=== PATIENT | male | born 1960 | race Caucasian/White ===

== ENCOUNTER 2017-05-21 17:53 | Emergency (ER) | payer OTHER ==
[~2017-05-21] VITALS: Ht 185.4 cm; Wt 91.6 kg
--- NOTE | ~2017-05-21 | EKG ---
[place] [address] [facility] [place] [address] ELECTROCARDIOGRAM REPORT Name: TIFFANY OLSEN Room #: [facility] Clay#: [id number] Admission: 05/21/17 Attend Phys: Discharge: 05/21/17 Date of : 58 Report #: [id number] THIS REPORT FOR: //name// [facility] ED Test Date: 2017-05-21 Test Time: 18:02:50 Pat Name: TIFFANY OLSEN Department: Room: Gender: M Refuse Laborer: [id number] : [id number] Requested By: Roderick Grace Order Number: [id number] MD: Yaya Trimble Measurements Intervals [place] Rate: 72 P: 59 SD: 148 QRS: 29 QRSD: 78 T: 112 QT: 363 QTc: 398 Interpretive Statements Sinus rhythm Nonspecific ST and T wave abnormality No previous ECG available for comparison Electronically Signed On 05-22-2017 8:44:57 CDT by Yaya Trimble [email or web address] <ELECTRONICALLY SIGNED> By: Yaya Trimble MD, [facility] 05/22/17 0844 1802 01 Yaya Trimlbe MD, FACC /EPI
[2017-05-21 18:05] LABS: ABSOLUTE NEUTROPHILS 6.2 thou/uL (1.4-8.2); BASOPHILS 0.9 % (0.0-2.0); EOSINOPHILS 0.4 % (0.0-3.0); HEMATOCRIT 43.9 % (42.0-52.0); HEMOGLOBIN 14.8 gm/dL (14.0-18.0); LYMPHOCYTES 22.1 % (24.0-44.0); MCH 27.7 pg (26.0-34.0); MCHC 33.7 g/dL (28.0-37.0); MCV 82.2 fL (80.0-100.0); MONOCYTES 6.3 % (1.0-8.0); PLATELET COUNT 249 thou/uL (150-400); POLYS 70.3 % (36.0-66.0); RBC 5.34 mil/uL (4.50-6.00); RDW 13.8 % (10.5-14.5); WBC 8.9 thou/uL (4.0-11.0)
[2017-05-21 18:06] LABS: MANUAL DIFF NO
[2017-05-21 18:14] LABS: ANION GAP 10 mmol/L (7-16); BUN 17 mg/dL (7-18); CALCIUM 9.2 mg/dL (8.5-10.1); CHLORIDE 107 mmol/L (98-107); CO2 25 mmol/L (21-32); CREATININE 1.2 mg/dL (0.7-1.3); GLUCOSE 141 mg/dL (74-106); POTASSIUM 3.3 mmol/L (3.5-5.1); SODIUM 142 mmol/L (136-145)
[2017-05-21] MEDS ORDERED: LISINOPRIL20 MG PO (18:17)
[2017-05-21] MEDS ORDERED: SIMVASTATIN40 MG PO (18:18)
[2017-05-21 18:27] LABS: ALBUMIN 4.1 g/dL (3.4-5.0); ALKALINE PHOSPHATASE 69 U/L (46-116); SGOT 74 U/L (15-37); SGPT 29 U/L (30-65); TOTAL BILIRUBIN 0.8 mg/dL (<0.1-1.0); TOTAL PROTEIN 7.9 g/dL (6.4-8.2); TROPONIN-I < 0.04 ng/mL (<0.04-0.07)
[2017-05-21 19:54] LABS: URINE BILIRUBIN NEGATIVE (Negative); URINE BLOOD TRACE (Negative); URINE COLOR YELLOW; URINE GLUCOSE-RANDOM* NEGATIVE (Negative); URINE KETONES TRACE (Negative); URINE NITRITE NEGATIVE (Negative); URINE PROTEIN (DIPSTICK) 1+ (Negative); URINE SPECIFIC GRAVITY 1.015 (1.003-1.035)
[2017-05-21 20:03] LABS: SQUAMOUS 0-3 Few /LPF (0-3)
[2017-05-21 20:04] LABS: BACTERIA 1-9 Few /HPF (None Seen); CRYSTALS None Seen /LPF (None Seen); URINE RBC 0-2 Rare /HPF (0-2)
[2017-05-21 20:08] LABS: HYALINE CASTS 0-3 Few /LPF (None Seen)
[2017-05-21 21:37] VITALS: BP 164/72
== END 2017-05-21 21:38 | disposition home or self-care (01) ==
LOC: ER 17:53
PROVIDERS: Physician Assistant
DX: S01.81XA Laceration without foreign body of other part of head, initial encounter (principal); M62.82 Rhabdomyolysis; T67.5XXA Heat exhaustion, unspecified, initial encounter; Z88.2 Allergy status to sulfonamides; F10.99 Alcohol use, unspecified with unspecified alcohol-induced disorder; W18.30XA Fall on same level, unspecified, initial encounter; Y93.89 Activity, other specified; Y92.511 Restaurant or cafe as the place of occurrence of the external cause; Y99.8 Other external cause status

== ENCOUNTER 2017-05-26 12:53 | Emergency (ER) | payer OTHER ==
[~2017-05-26] VITALS: Ht 185.4 cm; Wt 90.7 kg
[~2017-05-26 12:53] MED LIST: LISINOPRIL20 MG PO; SIMVASTATIN40 MG PO
[2017-05-26 12:54] VITALS: BP 157/67
== END 2017-05-26 13:46 | disposition home or self-care (01) ==
LOC: ER 12:53
DX: S01.81XD Laceration without foreign body of other part of head, subsequent encounter (principal); X58.XXXD Exposure to other specified factors, subsequent encounter; Y92.89 Other specified places as the place of occurrence of the external cause; Y99.8 Other external cause status; I10 Essential (primary) hypertension; E78.00 Pure hypercholesterolemia, unspecified; F10.99 Alcohol use, unspecified with unspecified alcohol-induced disorder; Z88.2 Allergy status to sulfonamides